=== PATIENT | female | born 1965 | race American Indian/Alaskan Native ===

== ENCOUNTER 2017-07-21 07:37 | Emergency (ER) | payer OTHER ==
[2017-07-21 08:24] VITALS: BP 144/77
[2017-07-21] MEDS ORDERED: TYLENOL PO ONE (10:29)
[2017-07-21] MEDS ORDERED: LIDOCAINE VISCOUS 2% PO ONE (10:29)
[2017-07-21] MEDS ORDERED: MOTRIN PO ONE (10:29)
--- NOTE | 2017-07-21 10:31 | Emergency Department Report ---
ED General Adult HPI - General Chief complaint: Sore Throat Stated complaint: SORE THROAT/CP WITH COUGH Time Seen by Provider: 07/21/17 10:20 Source: patient, RN notes reviewed, old records reviewed Mode of arrival: Ambulatory Limitations: No Limitations - History of Present Illness Initial comments: This is a 51-year-old female who was previously unknown to this provider. Her manager agricultural is Dr. Evangelista. Patient presents to the ER with a complaint of coughing, chest wall pain with coughing, hoarse voice, and right eye irritation. Her symptoms have been present for a week. Her chest pain with coughing does not radiate to the back, arms and neck. There is no vomiting or diaphoresis there is no shortness of breath. She reports no DVT or pulmonary embolus risk factors. She does not work glasses or contact lenses. There is no trauma to the eye. Her symptoms have been constant for the past week. Her chest wall pain increases with palpation. Otherwise, her symptoms do not radiate anywhere, and they do not have exacerbating or relieving factors. -: Gradual, days(s) Location: chest Radiation: non-radiation Consistency: constant Improves with: rest Associated Symptoms: cough. denies: confusion, diaphoresis, fever/chills, headaches, loss of appetite, malaise, nausea/vomiting, shortness of breath, syncope, weakness - Related Data Previous Rx's Medication Instructions Recorded Last Taken Type Cetirizine HCl/Pseudoephedrine [Ra 1 each PO Q12H #60 tab.er.12h 05/21/14 Unknown Rx Cetiri-D ER Tablet] Codeine Phosphate/Guaifenesin 5 ml PO TID #118 ml 05/21/14 Unknown Rx [Guaifenesin-Codeine Syrup] Mometasone Furoate [Nasonex] 2 spray NS QDAY #1 bottle 05/21/14 Unknown Rx Acetaminophen [Tylenol Arthritis] 650 mg PO Q6HR PRN #30 tablet.er 07/21/17 Unknown Rx Albuterol Sulfate [Proair 90 mcg IH Q4HR PRN #2 aer.pow.ba 07/21/17 Unknown Rx Respiclick] Benzonatate [Tessalon Perles] 100 mg PO Q8HR PRN #30 capsule 07/21/17 Unknown Rx Fluticasone [Flonase] 1 spray NS QDAY #1 bottle 07/21/17 Unknown Rx Ibuprofen [Motrin] 600 mg PO Q8H PRN #30 tablet 07/21/17 Unknown Rx Allergies Allergy/AdvReac Type Severity Reaction Status Date / Time No Known Allergies Allergy Unverified 05/21/14 13:39 ED Review of Systems ROS: Stated complaint: SORE THROAT/CP WITH COUGH Other details as noted in HPI ED Past Medical Hx - Past Medical History Previous Medical History?: Yes Additional medical history: Left arm/left chest pain - Surgical History Additional Surgical History: hysterectomy- 2006 - Social History Smoking Status: Never Smoker Substance Use Type: Prescribed - Medications Home Medications: Home Medications Medication Instructions Recorded Confirmed Last Taken Type Cetirizine HCl/Pseudoephedrine [Ra 1 each PO Q12H #60 tab.er.12h 05/21/14 Unknown Rx Cetiri-D ER Tablet] Codeine Phosphate/Guaifenesin 5 ml PO TID #118 ml 05/21/14 Unknown Rx [Guaifenesin-Codeine Syrup] Mometasone Furoate [Nasonex] 2 spray NS QDAY #1 bottle 05/21/14 Unknown Rx Acetaminophen [Tylenol Arthritis] 650 mg PO Q6HR PRN #30 tablet.er 07/21/17 Unknown Rx Albuterol Sulfate [Proair 90 mcg IH Q4HR PRN #2 aer.pow.ba 07/21/17 Unknown Rx Respiclick] Benzonatate [Tessalon Perles] 100 mg PO Q8HR PRN #30 capsule 07/21/17 Unknown Rx Fluticasone [Flonase] 1 spray NS QDAY #1 bottle 07/21/17 Unknown Rx Ibuprofen [Motrin] 600 mg PO Q8H PRN #30 tablet 07/21/17 Unknown Rx ED Physical Exam - General Limitations: No Limitations General appearance: alert, in no apparent distress - Head Head exam: Present: atraumatic, normocephalic - Eye Eye exam: Present: normal appearance, EOMI. Absent: nystagmus - ENT ENT exam: Present: normal exam, normal orophraynx, mucous membranes moist, TM's normal bilaterally, normal external ear exam - Neck Neck exam: Present: normal inspection, full ROM - Respiratory Respiratory exam: Present: normal lung sounds bilaterally, chest wall tenderness. Absent: respiratory distress - Cardiovascular Cardiovascular Exam: Present: regular rate, normal rhythm, normal heart sounds. Absent: bradycardia, tachycardia, irregular rhythm, systolic murmur, diastolic murmur, rubs, gallop - GI/Abdominal GI/Abdominal exam: Present: soft, normal bowel sounds. Absent: distended, tenderness, guarding, rebound, rigid, pulsatile mass - Extremities Exam Extremities exam: Present: normal inspection, full ROM, normal capillary refill. Absent: tenderness, pedal edema, joint swelling, calf tenderness - Back Exam Back exam: Present: normal inspection, full ROM. Absent: tenderness, CVA tenderness (R), muscle spasm, paraspinal tenderness, vertebral tenderness - Neurological Exam Neurological exam: Present: alert, oriented X3, CN II-XII intact, normal gait, other (Extraocular movements intact. Tongue midline. No facial droop. Facial sensation intact to light touch in the V1, V2, V3 distribution bilaterally. 5 and 5 strength in 4 extremities.. Sensation is intact to light touch in 4 extremities.). Absent: motor sensory deficit - Psychiatric Psychiatric exam: Present: normal affect, normal mood - Skin Skin exam: Present: warm, dry, intact, normal color. Absent: rash ED Course Vital Signs 07/21/17 08:19 Temperature 98.2 F Pulse Rate 69 Respiratory 16 Rate Blood Pressure 144/77 O2 Sat by Pulse 98 Oximetry ED Medical Decision Making - Lab Data Vital Signs 07/21/17 08:19 Temperature 98.2 F Pulse Rate 69 Respiratory 16 Rate Blood Pressure 144/77 O2 Sat by Pulse 98 Oximetry - EKG Data -: EKG Interpreted by Me EKG shows normal: sinus rhythm Rate: normal - EKG Data When compared to previous EKG there are: no significant change 07/21/17 11:07 Sinus, 63 bpm, borderline left axis deviation, high left ventricular voltage, abnormal EKG, not having chest pain at this time, not morphologically consistent with ST elevation myocardial infarction, appears unchanged from prior EKG from January 2016. - Radiology Data Radiology results: image reviewed interpreted by me: X-ray of the chest, interpreted by me: No acute disease - Medical Decision Making Differential diagnosis, including but not limited to: Costochondritis, viral syndrome, laryngitis Assessment and plan: 51-year-old female with a complaint of hoarse voice, chest wall pain with coughing that is reproducible, EKG that is unchanged from prior, most likely with viral syndrome/laryngitis. X-ray of the chest unremarkable, she is checking her airway at this time, patient will be medicated appropriately and referred to her outpatient primary care doctor. Return precautions reviewed. Ocular examination is unremarkable, no obvious discharge noted on my exam, extraocular movements are intact.visual acuity intact to finger counting, color perception, reading at a close distance Critical care attestation.: If time is entered above; I have spent that time in minutes in the direct care of this critically ill patient, excluding procedure time. ED Disposition Clinical Impression: Laryngitis Disposition: DC-01 TO HOME OR SELFCARE Is pt being admited?: No Does the pt Need Aspirin: No Condition: Stable Instructions: Viral Syndrome (ED) Additional Instructions: Symptoms most likely coming from laryngitis, bronchitis/viral syndrome. This typically lasts for a few weeks. Take the medications as needed/directed. Follow-up with her primary care doctor within the next 10-14 days. Follow up with her manager agricultural as scheduled. Return to the ER right away with new pain, worsened pain, migration of pain, fevers, chills, lethargy, irritability, projectile vomiting, change in mental status, confusion, inability to tolerate liquid feeds. Referrals: PRIMARY CARE, [Primary Care Provider] - 3-5 Days SAMANTA EVANGELISTA MD [Staff Physician] - 3-5 Days SHARMAINE SPAIN MD [Staff Physician] - 3-5 Days
--- NOTE | 2017-07-21 11:11 | XRay Report ---
ROUTINE CHEST, TWO VIEWS: HISTORY: Cough, chest wall pain. The trachea, heart, mediastinal contour, lung pizano and bony thorax are unremarkable. IMPRESSION: Unremarkable chest x-ray.
== END 2017-07-21 11:18 | disposition home or self-care (01) ==
LOC: ED 07:37
DX: J04.0 Acute laryngitis (principal)
CPT/HCPCS: 71046; 93005; 93010; 99283